=== PATIENT | female | born 1985 | race African-American/Black ===

== ENCOUNTER 2018-09-27 16:10 | Emergency (ER) | payer MEDICAID ==
[~2018-09-27] VITALS: Ht 165.1 cm; Wt 64.0 kg
[2018-09-27 16:25] VITALS: BP 146/103
== END 2018-09-27 22:04 | disposition left against medical advice (07) ==
LOC: ER 16:10
DX: Z53.21 Procedure and treatment not carried out due to patient leaving prior to being seen by health care provider (principal)